=== PATIENT | female | born 1980 | race Caucasian/White ===

== ENCOUNTER 2016-08-25 09:31 | Emergency (ER) | payer MEDICAID ==
[2016-08-25 09:37] VITALS: BP 126/78; PULSE 125; TEMP 99.3; BMI 18.8
--- NOTE | 2016-08-25 09:54 | EDPRACDOC ---
- General Information Chief Complaint: Toothache Stated Complaint: TOOTH PAIN Time Seen by Provider: 08/25/16 09:46 Information Source: Patient Mode Of Arrival: Car Home Medications: Home Medications Amoxicillin/Clavulanate Potas. [Augmentin] 875 mg PO BID #20 tab 08/25/16 Ibuprofen Tablet [Motrin] 800 mg PO QID #30 tab 08/25/16 Tramadol HCl [Ultram] 50 mg PO Q6H #14 tab 08/25/16 Allergies/Adverse Reactions: Allergies Allergy/AdvReac Type Severity Reaction Status Date / Time medroxyprogesterone acetate Allergy See Verified 08/25/16 09:36 [From Depo-Provera] Comments - History of Present Illness Onset: 1 WEEK Reported Tooth Problem: RIGHT UPPER CANINE Pain Severity: Reports: Moderate Relevant History of: Reports: None Modifying Factors: improves with: Heat, Cold, Chewing Associated Signs and Symptoms: Reports: None ED Past Medical History - History Reviewed Yes Nurses notes reviewed and agree except as marked - Patient Medical History Psychological History: Denies: Depression - Social Medical History Smoking Status: Heavy tobacco smoker (5 or more cigarettes/day or daily pipe/ cigar) EDM Review of Systems - Review of Systems ROS Negative Except as Marked: Yes All systems reviewed and were negative except as marked - Physical Exam Constitutional: Alert Oriented to: Time, Person, Place Last recorded Vital Signs: Last Vital Signs Temp 99.3 F 08/25/16 09:32 Pulse 125 H 08/25/16 09:32 Resp 18 08/25/16 09:32 BP 126/78 08/25/16 09:32 Pulse Ox 97 08/25/16 09:32 Oxygen Pulse Oxygen Saturation 97 O2 Device Room Air Oxygen Flow Rate Fraction of Inspired Oxygen ( FIO2) - HEENT Head: Normal ( normocephalic) Eye Exam: Normal (PERRL, EOMI, Sclera white) Oropharynx: Normal (Pharynx:Moist without exudate,Gums-no swelling) Nose: No Symptoms Reported (septum midline) Neck: Normal (FROM, trachea at midline) - Respiratory/Cardiovascular Respiratory: Normal - CTA (BBS clear to auscultation without adventitious sounds ) Cardiovascular: Tachycardia - GI Auscultation: Normal (NABS) Palpation: Normal (Soft,No rebound or guarding, non distended) Tenderness: Non tender Grimes's Sign: Negative Rectal Exam: Deferred - Musculoskeletal Back: Normal (Non-Tender) Extremities: Normal (Normal tone, Pulses 2+ No cyanosis or edema, FROM) - Integumentary Skin: Normal, Warm, Dry Lymphatics: Normal (no adenopathy) - Neurologic Memory Impaired: Normal Motor Function: Normal (Normal tone, Pulses 2+ No cyanosis or edema, FROM) Cranial Nerve: Normal (CN II-X11 intact sensation, strength 5/5) Cerebellar: Normal Mood Description: Normal Perception: Normal ED Tooth Problem Exam - HEENT Face: Tender Teeth: Right: Canine Upper (CARIES) Gingiva: Tender Palate: Normal Mouth Range of Motion: Normal Sinuses: Normal Oropharynx: Normal Neck: Normal - Differential Diagnosis Periodontal Abscess Decision Time to Discharge: 09:54 - Departure Disposition: Home Condition: Stable Final Diagnosis: Toothache, Dental caries Instructions: Dental Caries (ED) Education/Counseling Given To: Patient Education/Counseling Given Regarding: Diagnosis, Treatment, Prognosis, Follow Up Referrals: Murray Sandoval II, MD [Staff Physician] - One Week Prescriptions: Amoxicillin/Clavulanate Potas. [Augmentin] 875 mg PO BID #20 tab Ibuprofen Tablet [Motrin] 800 mg PO QID #30 tab Tramadol HCl [Ultram] 50 mg PO Q6H #14 tab Additional Instructions: INCREASE FLUID INTAKE. FOLLOW UP WITH PRIMARY CARE PROVIDER NEXT WEEK. TAKE ALL ANTIBIOTICS PRESCRIBED. RETURN TO THE ED FOR WORSENING SYMPTOMS OR CONCERNS.
[2016-08-25] MEDS ORDERED: IBUPROFEN 800 MG TAB PO ONE (10:03)
[2016-08-25] MEDS ORDERED: AMOXICILLIN/CLAVULANATE 875 MG TAB PO ONE (10:04)
== END 2016-08-25 10:10 | disposition home or self-care (01) ==
LOC: ED 09:31
DX: K02.9 Dental caries, unspecified (principal)
CPT/HCPCS: 99283; J3490